=== PATIENT | male | born 1955 | race Caucasian/White ===

== ENCOUNTER 2023-09-26 07:52 | Outpatient (REF) | payer MEDICARE, SELFPAY ==
--- NOTE | 2023-09-26 07:57 | EMG_ITS ---
Bilateral tibial and peroneal motor studies were performed. Bilateral superficial peroneal and sural sensory studies were performed. Tibial H reflexes were obtained and paraspinal muscles were tested with a needle. 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 MD DARBY Le/ULI / [id number]
== END 2023-09-26 07:53 | disposition home or self-care (01) ==
LOC: HO.NEURO 07:52
PROVIDERS: PCP Internal Medicine Medical Oncology; Visit Provider Internal Medicine Medical Oncology
DX: R20.0 Anesthesia of skin (principal); G62.9 Polyneuropathy, unspecified
CPT/HCPCS: 95886; 95913

== ENCOUNTER 2024-02-13 13:15 | Outpatient (AMB) | payer MEDICARE, SELFPAY ==
--- NOTE | 2024-02-13 13:20 | A.SPINEOV_ITS ---
Vital Signs 02/13/24 13:33 Height 5 ft 8 in Weight 180 lb BMI 27.4 Intake Visit Reasons: Lumbar radiculopathy Intake Note: Mr. Jacobson is here today c/o right sided Low back pain. 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 This is a 68-year-old gentleman who presents to the office today for evaluation of herniated disc found on his lumbar MRI. He reports that sometime in about early December when he was going on vacation with his afternoon hamstring he started to notice some back pain. A day or so into his trip, in turned into an intense severe pain in his back radiating into his right groin going down his anterior thigh into his knee. It was so intense he ended up in the emergency room, underwent a series of workups all of which were negative. He was given some pain medication and shuttled out the door. By the time he got out to his camper again, he was in very severe pain. The next day or 2 was quite intense and for about 10 days he was in extreme amount of pain. It has slowly resolved and he has had significant relief of the original intense pain. He still will get back pain on the right side of his low back going into his groin into the front of his thigh occasionally. Right now he is back to doing most of his activities. He has been cautious about what he lifts but otherwise has just been trying to do things as he seems to feel appropriate by his comfort level. He does report numbness of his hands and his legs. This has been present for a number of months now and tells me that he is diagnosed with neuropathy along the way at 1 point. PMH: He had history of a heart attack with stent in 2002. He tells me it was a small heart attack, he did not have to have an extended stay in the hospital, was treated with a stent and has been fine ever since. He no longer follows up with Cardiology because he has been stable for so long. Had a prostatectomy done at [facility] in May of last year which according to the patient seemed to go well initially but with an week he was back in the hospital with severe sepsis and shock, kidney failure and host of other medical problems related to the sepsis. He did end up recovering from that and his kidney function is gone back to normal. He has been off dialysis for quite some time now. This is around the time with the neuropathy started. He takes gabapentin for that. Denies any history of strokes, bleeding disorders, major intestinal surgeries, lung problems, liver problems. Social hx: He does not smoke, he used to drink intermittently pretty heavily from time to time but has not had any any alcohol since his issue with prostatectomy in the sepsis last year. Does not use any recreational drugs Medications: Gabapentin, hydralazine, metoprolol and he also takes a cholesterol pill which he could not remember the name of Allergies: Cefepime Physical exam: He is awake alert oriented no acute distress, he has full strength of bilateral upper and lower extremities with the exception of the right iliopsoas which is 4/5. He has brisk reflexes in the upper extremities and hyperreflexia with clonus in the lower extremities, specifically clonus in the ankles. Imaging review: He is a lumbar MRI done at [facility] showing multilevel degenerative disc disease but on the right at L3-4 there is a large herniated disc pushing back compressing the right L4 nerve root extending into the L3 foramen. Impression: 68-year-old male presents with what sounds like a resolving herniated disc on the right at L3-4. He still is getting intermittent back pain and radicular symptoms but not nearly as bad when it started about 6 weeks ago. I explained to him that there is 90% success rate with resolution of disc herniations have given enough time. Does have a little weakness of his iliopsoas on the right, but I told him that even with surgical intervention, there is no guarantee that the weakness would improve so that itself would not be an indication for surgery. I think we should just continue to give him some more time and I suspect he will heal this up on his own. I do have other concerns however because of his history of numbness of his arms and his legs with evidence of hyperreflexia on his exam I think we should do a cervical MRI as a matter of caution to rule out myelopathy. Thank you for allowing us to care for your patient. The total time spent with this visit with this patient was 45 minutes reviewing history, physical exam, lumbar imaging review, and implementation of treatment plan or further diagnostic testing Rodrigo Vasquez MD,PhD [facility] Orders: Orders MR cervical spine wo con Today R20.0 - Anesthesia of skin, R20.2 - Paresthesia of skin Coding Level of Care Code New Pt Level 4 (26004) Diagnoses Lumbar disc herniation M51.26
[2024-02-13 13:33] VITALS: BMI 27.4
== END 2024-02-13 14:17 | disposition home or self-care (01) ==
PROVIDERS: PCP Internal Medicine Medical Oncology; Referring Provider Internal Medicine Medical Oncology; Visit Provider Physician Assistant
DX: M51.26 Other intervertebral disc displacement, lumbar region (principal)
CPT/HCPCS: 99204

== ENCOUNTER → 2024-02-13 13:15 | Outpatient (BNVA) | payer MEDICARE, SELFPAY | PROVIDERS: PCP Internal Medicine Medical Oncology; Visit Provider Physician Assistant | DX: M51.26 Other intervertebral disc displacement, lumbar region (principal); R20.0 Anesthesia of skin; R20.2 Paresthesia of skin | CPT/HCPCS: 99202 ==